=== PATIENT | female | born 1970 | race Two or more races ===

== ENCOUNTER 2017-09-05 21:35 | Emergency (ER) | payer MEDICAID, OTHER ==
[~2017-09-05] VITALS: Ht 162.6 cm; Wt 90.7 kg
[2017-09-05 21:53] VITALS: BP 196/112
[2017-09-06] MEDS ORDERED: CYCLOBENZAPRINE HCL 10 MG TAB PO ONE (00:30)
[2017-09-06] MEDS ORDERED: IBUPROFEN 600 MG TAB PO ONE (00:30)
== END 2017-09-06 01:28 | disposition home or self-care (01) ==
LOC: ER 21:45
DX: S16.1XXA Strain of muscle, fascia and tendon at neck level, initial encounter (principal); S20.211A Contusion of right front wall of thorax, initial encounter; M79.1 Myalgia; I10 Essential (primary) hypertension; Z88.2 Allergy status to sulfonamides; V49.59XA Passenger injured in collision with other motor vehicles in traffic accident, initial encounter; Y93.89 Activity, other specified; Y99.8 Other external cause status; Y92.89 Other specified places as the place of occurrence of the external cause
CPT/HCPCS: 71010; 72125; 81025